=== PATIENT | female | born 1990 | race Two or more races ===

== ENCOUNTER 2021-07-31 09:06 | Emergency (ER) | payer MEDICAID, OTHER ==
[~2021-07-31] VITALS: Ht 170.2 cm; Wt 117.9 kg
[2021-07-31 09:30] VITALS: BP 122/69
[2021-07-31] MEDS ORDERED: AZIT500T66 PO (09:32)
[2021-07-31] MEDS ORDERED: LIDO2SOL23 PO (09:32)
== END 2021-07-31 09:46 | disposition home or self-care (01) ==
LOC: ER 09:06
DX: J03.90 Acute tonsillitis, unspecified (principal); Z20.822 Contact with and (suspected) exposure to COVID-19; Z90.49 Acquired absence of other specified parts of digestive tract
CPT/HCPCS: 36415; 87426

== ENCOUNTER 2021-11-20 09:34 | Emergency (ER) | payer MEDICAID ==
[~2021-11-20] VITALS: Ht 170.2 cm; Wt 120.7 kg
[~2021-11-20 09:34] MED LIST: AZIT500T66 PO; LIDO2SOL23 PO
[2021-11-20 09:41] VITALS: BP 132/66
[2021-11-20] MEDS ORDERED: AZIT500T66 PO (10:12)
[2021-11-20] MEDS ORDERED: ACET-1080 PO (10:12)
== END 2021-11-20 10:20 | disposition home or self-care (01) ==
LOC: ER 09:34
DX: J03.90 Acute tonsillitis, unspecified (principal); Z90.49 Acquired absence of other specified parts of digestive tract

== ENCOUNTER 2022-03-28 06:09 | Emergency (ER) | payer MEDICAID ==
[~2022-03-28] VITALS: Ht 170.2 cm; Wt 120.0 kg
[2022-03-28 06:09] VITALS: BP 127/89
[~2022-03-28 06:09] MED LIST changes: +ACET-1080 PO
[2022-03-28] MEDS ORDERED: AZIT500T66 PO (08:52)
== END 2022-03-28 09:08 | disposition home or self-care (01) ==
LOC: ER 06:09
DX: J03.90 Acute tonsillitis, unspecified (principal); Z90.49 Acquired absence of other specified parts of digestive tract